=== PATIENT | male | born 1975 | race Caucasian/White ===

== ENCOUNTER 2018-09-15 13:31 | Emergency (ER) | payer MEDICARE ==
[2018-09-15] MEDS ORDERED: DIPH,PERTUSS(ACELL),TET VAC/PF 0.5 ML DISP.SYRIN IM ONE ×2 (13:36→14:14)
[2018-09-15] MEDS ORDERED: Lidocaine 1% 5ml 10 MG/ML VIAL IJ ONE (13:36)
--- NOTE | 2018-09-15 13:48 | ED Physician Documentation ---
General Adult - HISTORIAN Historian: patient - HPI Stated Complaint: elbow laceration Chief Complaint: Laceration/Recheck/Suture Additional Information: Patient presents to ED with laceration to right posterior elbow. Patient states he was in the garage pull starting a weed benita when he hit his elbow on a glass chandelier hanging in the garage. Patient states he bought the chandelier yesterday at a yard sale. Onset: hours (1) Timing: still present Severity: mild - ROS CONST: no problems EYES/ENT: none CVS/RESP: none GI/: denies: vomiting, nausea MS/SKIN/LYMPH: none NEURO/PSYCH: denies: headache - PAST HX Past History: none Other History: none Surgeries/Procedures: none Allergies/Adverse Reactions: Allergies Allergy/AdvReac Type Severity Reaction Status Date / Time No Known Drug Allergies Allergy Verified 09/15/18 14:09 Home Medications: Ambulatory Orders Medication Instructions Recorded NK 09/15/18 - SOCIAL HX Smoking History: cigarettes, greater than 1 pack/day Alcohol Use: none Drug Use: marijuana - FAMILY HX Family History: No - VITAL SIGNS Vital Signs: Vital Signs Temp Pulse Resp BP Pulse Ox 109 H 19 159/74 96 09/15/18 13:31 09/15/18 13:31 09/15/18 13:31 09/15/18 13:31 - REVIEWED ASSESSMENTS Nursing Assessment Reviewed: Yes Vitals Reviewed: Yes Procedures Wound Location: upper extremity (right posterior elbow) Wound Length: 5 cm Wound's Depth, Shape: linear, flap Wound Explored: clean Irrigated w/ Saline (ccs): 1,000 Betadine Prep?: No Anesthesia: 1% Lidocaine Wound Debrided: extensive Wound Repaired With: sutures Suture Size/Type: 4:0 Number of Sutures: 12 Sterile Dressing Applied?: Yes Splint Applied?: No Sling Applied?: No ED Results Lab/Radiology - Orders Orders: ED Orders Category Date Time Status Cleanse with NS and Chlorhexid 1T Care 09/15/18 13:37 Active Diph,Pertuss(Acell),Tet Vac/Pf [Adacel] Med 09/15/18 13:36 Discontinued 0.5 ml IM .ONCE ONE Diph,Pertuss(Acell),Tet Vac/Pf [Adacel] Med 09/15/18 14:14 Discontinued 0.5 ml IM .STK-MED ONE Lidocaine 1% 5ml [Xylocaine] Med 09/15/18 13:36 Discontinued 50 mg IJ NOW ONE General Adult Physical Exam - PHYSICAL EXAM GENERAL APPEARANCE: no distress EENT: FATIMAH NECK: normal inspection, supple RESPIRATORY: no resp distress, chest non-tender, breath sounds normal CVS: reg rate & rhythm, heart sounds normal ABDOMEN: soft, non-tender BACK: normal inspection SKIN: warm/dry, normal color EXTREMITIES: non-tender, other (5 cm laceration to right posterior elbow) NEURO: oriented X3, sensation nml, mood/affect nml Discharge Clincal Impression: Laceration of elbow Qualifiers: Encounter type: initial encounter Laterality: right Qualified Code(s): S51.011A - Laceration without foreign body of right elbow, initial encounter Referrals: Primary Doctor,No [REFERRING] - 2 Days Additional Instructions: 1. Keep wound dry. No baths, hot tubs or swimming. Showers ok 2. Clean wound twice daily with antibacterial soap. Pat dry. 3. Follow up with PCP for suture removal in 10 days. 4. Return to ER for new or worsening symptoms Condition: Stable Decision to Admit: NO Date of Decison to Admit: 09/15/18 Decision Time: 14:31
[2018-09-15 15:11] VITALS: BP 132/74
== END 2018-09-15 14:46 ==
LOC: ED 13:31
DX: S51.011A Laceration without foreign body of right elbow, initial encounter (principal); W22.8XXA Striking against or struck by other objects, initial encounter; Y93.89 Activity, other specified; Y92.015 Private garage of single-family (private) house as the place of occurrence of the external cause
CPT/HCPCS: 90471; 90715; 99283; 99284